=== PATIENT | male | born 2000 | race Caucasian/White ===

== ENCOUNTER 2022-04-09 06:39 | Day surgery (SDC) | payer OTHER ==
[2022-04-09] VITALS (7 sets, daily range): BP systolic 90–128; BP diastolic 48–84
[~2022-04-09] VITALS: Ht 165.1 cm; Wt 72.6 kg
--- NOTE | 2022-04-09 06:45 | NUR ---
PT AMBULATED TO UNIT WITH DAD, POC HAS BEEN DISCUSSED. PT IS A&OX4. PT IN NAD. PT HAS BEEN ORIENTED TO ROOM, CALL LIGHT IS NEAR AND PT IS PLACED ON SAFETY PRECAUTIONS. VSS. WILL CONTINUE TO MONITOR.
[2022-04-09 07:02] LABS: HEMATOCRIT 41.3 % (39.0-50.0); HEMOGLOBIN 14.1 g/dl (14.0-18.0); IMMATURE GRANULOCYTES 0.2 % (0.0-5.0); MEAN CELL VOLUME 86.4 fL CALC (80.0-100.0); MEAN CORPUSCULAR HGB 29.5 pG CALC (26.0-32.0); MEAN CORPUSCULAR HGB CONC 34.1 g/dL CAL (32.0-36.0); NEUT# 5.48 thou/uL (1.82-7.42); RED BLOOD COUNT 4.78 mill/uL (4.70-6.10); RED CELL DISTRI WIDTH 12.7 % (11.5-15.5)
[2022-04-09 07:17] LABS: ALKALINE PHOSPHATASE 123 u/l (38-126); ANION GAP 18 (6-22 (CALC)); BILIRUBIN, TOTAL 1.2 mg/dL (0.0-1.4); BUN 14 mg/dL (9-20); BUN/CREATININE RATIO 15 (12-20 (CALC)); CARBON DIOXIDE 27 mmol/l (22-30); CHLORIDE 99 mmol/l (95-108); CREATININE 0.9 mg/dL (0.7-1.3); GFR FOR AFR.AMER. > 60 ML/MIN (>=60 (CALC)); GFR OTHER RACES > 60 ML/MIN (>=60 (CALC)); POTASSIUM 3.5 mmol/l (3.5-5.1); SGOT/AST 35 u/l (17-59); SODIUM 140 mmol/l (137-146); TOTAL PROTEIN 8.3 g/dL (6.3-8.2)
--- NOTE | 2022-04-09 08:42 | NUR ---
Patient resting comfortably in bed. Easily aroused and maintains focus. No signs of active withdrawal or distress noted at this time.
--- NOTE | 2022-04-09 08:52 | NUR ---
Dr. Max telephoned with reassessment and new vital signs. Reviewed initial Valium and Clonidine dose with MD. Orders received for 5 mg PO Valium and NO Clonidine. Will reassess per protocol in 1.5 hours and update MD with assessment and vitals.
--- NOTE | 2022-04-09 10:35 | NUR ---
Patient resting comfortably in bed. Easily aroused and maintains focus. No adverse signs of active withdrawal or distress noted at this time. 250ml bolus in progress, MD aware.
--- NOTE | 2022-04-09 10:44 | NUR ---
Dr. Max telephoned with reassessment and new vital signs. Reviewed initial and subsequent Valium and Clonidine doses with MD. No orders given at this time. Allow patient to continue to rest. Will reassess per protocol in 1.5 hours and update MD with reassessment and new vitals.
--- NOTE | 2022-04-09 12:48 | NUR ---
Induction Note Patient to [facility] procedure room. Time out performed at 1248. Patient placed on monitors, Caitlin hugger, bilateral wrist restraints applied for ET tube protection. Versed 5mg given IV push at 1249 Tourniquet applied to RIGHT arm Lidocaine 100mg given at 1250 IV push followed by Rocoronium 10mg at 1251 IV push and held for 90 seconds. Propofol bolus of 120 mg given at 1253 IV push. Succinylcholine 80mg given IV push at 1254. Smooth intubation with 7.5 ETT. Positive CO2. Positive Auscultation for air exchange. Patient placed on ventilator for spontaneous ventilation. Placed on Propofol IV drip at 1255. OG inserted. Positive air on auscultation. Positive gastric content. Stomach washed at this time.
--- NOTE | 2022-04-09 12:54 | NUR ---
Successful intubation with 7.5 ETT @ 23L.
--- NOTE | 2022-04-09 13:06 | NUR ---
OG close note Stomach washed at this time. Naltrexone 50 mg given via OG tube. No Clonidine at this time. OG will be clamped for 45 minutes.
--- NOTE | 2022-04-09 13:51 | NUR ---
OG open note OG open at this time. Gastric content draining into drainage bag. OG to drain for 45 minutes. Propofol will be titrated down based on patient.
--- NOTE | 2022-04-09 14:36 | NUR ---
OG close note Stomach washed at this time. Naltrexone 50 mg with Clonidine 0.2 mg via OG tube. OG will be clamped for 45 minutes.
[2022-04-09] MEDS ORDERED: NALTREXONE50 MG PO (14:41)
[2022-04-09] MEDS ORDERED: CLONIDINE0.1 MG PO (14:42)
[2022-04-09] MEDS ORDERED: KLONOPIN2 MG PO (14:42)
--- NOTE | 2022-04-09 16:06 | NUR ---
OG close note Stomach washed at this time. Naltrexone 25 mg with Clonidine 0.2 mg via OG tube. OG will be clamped for 45 minutes.
--- NOTE | 2022-04-09 17:35 | NUR ---
Dr. Max telephoned with reassessment and newest vital signs. Reviewed Naltrexone/Clonidine total dose. Orders received to begin closing medications in 25 mins and in addition to closing medications, orders given for NO Naltrexone and 0.2 mg Clonidine per tube.
--- NOTE | 2022-04-09 18:30 | NUR ---
Extubation note Closing medications given Benadryl 50mg IV push, Decadron 10mg IV push,Magnesium 4 grams IV, Zofran 8mg IV push, Octreotide 100mcg SC, and Clonidine 0.2 per order. Stomach washed out prior to extubation. Suctioned gastric content. OG removed. Patient extubated. Propofol Discontinued. Wrist restraints removed. Caitlin hugger Removed. See [facility] Moderate sedate recovery record for further notes and assessment.
--- NOTE | 2022-04-09 19:12 | NUR ---
Transfer of care given to VENKATA Franks on floor. Patient to room 284 in no acute distress. 2L NC placed per orders, IVF to continue at 100ml/hr. VSS: 106/65, 74, 100%, 100.1 (environmental changes made, 99.1 newest). Patient resting comfortably, no adventitious breath sounds appreciated. Bed alarm set. Handoff of care at the time of this note.
--- NOTE | 2022-04-09 19:30 | NUR ---
PATIENT RESTING IN BED WITH EYES CLOSED. HEAD OF BED ELEVATED SLIGHTLY. NO SIGNS OF DISTRESS. NO SIGNS OF PAIN. VS STABLE. BED IN LOW POSITION. BED ALARM ACTIVE.
--- NOTE | 2022-04-09 23:12 | NUR ---
PATIENT RESTING IN BED. NO SIGNS OF DISTRESS NOTED. UNABLE TO SWALLOW MEDS YET AT THIS TIME. BED REMAINS IN LOW POSITION. BED ALARM ACTIVE. VS REMAIN STABLE.
--- NOTE | 2022-04-10 03:20 | NUR ---
PATIENT RESTING IN BED WITH EYES CLOSED. ABLE TO MAKE NEEDS KNOWN WHEN AWAKE. NO SIGNS OF DISTRESS. NO COMPLAINTS OF PAIN. PATIENT HAS BEEN NOTIFYING STAFF WHEN HE NEEDS TO USE RESTROOM. PATIENTS VOIDS USING URINAL. BED REMAINS IN LOW POSITION. BED ALARM ACTIVE.
[2022-04-10 03:47] VITALS: BP 116/64
[2022-04-10 04:52] LABS: HEMOGLOBIN 13.2 g/dl (14.0-18.0); IMMATURE GRANULOCYTES 0.2 % (0.0-5.0); MEAN CELL VOLUME 85.8 fL CALC (80.0-100.0); MEAN CORPUSCULAR HGB 29.8 pG CALC (26.0-32.0); MEAN CORPUSCULAR HGB CONC 34.7 g/dL CAL (32.0-36.0); NEUT# 7.5 thou/uL (1.82-7.42); RED BLOOD COUNT 4.43 mill/uL (4.70-6.10); RED CELL DISTRI WIDTH 12.7 % (11.5-15.5)
[2022-04-10 05:02] LABS: ALBUMIN 4.8 g/dL (3.2-5.0); ALKALINE PHOSPHATASE 110 u/l (38-126); ANION GAP 16 (6-22 (CALC)); BILIRUBIN, TOTAL 0.8 mg/dL (0.0-1.4); BUN 13 mg/dL (9-20); BUN/CREATININE RATIO 14 (12-20 (CALC)); CARBON DIOXIDE 22 mmol/l (22-30); CHLORIDE 106 mmol/l (95-108); CREATININE 0.9 mg/dL (0.7-1.3); GFR FOR AFR.AMER. > 60 ML/MIN (>=60 (CALC)); GFR OTHER RACES > 60 ML/MIN (>=60 (CALC)); POTASSIUM 3.9 mmol/l (3.5-5.1); SGOT/AST 30 u/l (17-59); SODIUM 141 mmol/l (137-146); TOTAL PROTEIN 7.4 g/dL (6.3-8.2)
[2022-04-10 06:36] VITALS: BP 102/51
--- NOTE | 2022-04-10 07:00 | NUR ---
Receive report from [facility].
[2022-04-10 07:58] VITALS: BP 102/51
--- NOTE | 2022-04-10 08:40 | NUR ---
Patient resting in bed with eye closed. Vital signs stable at this time. Fever gived tylenol 650 mg po. No signs of distress. No pain or discomfort. Safety and fall pprecautions in place. Call light within reach. Sitter at bed side. Bed alarm on.
--- NOTE | 2022-04-10 12:09 | NUR ---
PATIENT RESTING IN BED. NO SIGNS OF DISTRESS NOTED. STABLE AT THIS TIME. BED REMAINS IN LOW POSITION. BED ALARM ACTIVE. SITTER AT BED SIDE
--- NOTE | 2022-04-10 16:15 | NUR ---
Stable patient at the moment. He ate, drank juice, walked without complications to the bathroom. He says that he is ready to go home. Safety and fall precautions in place.
== END 2022-04-10 19:05 | disposition home or self-care (01) | DRG 897 ==
LOC: ANR 06:39 → ANR-I 06:40 → ANR 07:00 → MS2 18:55 → ANR 04-10 19:05
PROVIDERS: ATTEND Anesthesiology
DX: F11.20 Opioid dependence, uncomplicated (principal)
CPT/HCPCS: J2354; J3475